=== PATIENT | male | born 1975 | race Caucasian/White ===

== ENCOUNTER 2016-08-28 10:38 | Inpatient (IN) ==
[2016-08-28] MEDS ORDERED: 0.9 % Sodium Chloride 1,000 ML IVC ONE (10:41)
[2016-08-28] MEDS ORDERED: Ondansetron 4 MG/2 ML VIAL IVP ONE (10:42)
[2016-08-28] MEDS ORDERED: *HR* FentaNYL (PF) 100 MCG/2 ML VIAL IVP ONE (10:42)
[2016-08-28 11:07] LABS: Hemoglobin 9.5 g/dL (12.9-16.9)
[2016-08-28 11:08] LABS: Basophils % 0.5 %; Eosinophils # 0.6 K/mcL (0.0-0.6); Eosinophils % 9.5 %; Hematocrit 28.6 % (37.5-50.1); Immature Granulocytes % 1.6 % (0-4); Immature Platelets 5.4 % (1.1-6.1); Lymphocytes # 0.8 K/mcL (0.6-4.6); Lymphocytes % 13.3 %; Mean Corpuscular HGB Conc 33.2 g/dL (31.6-35.5); Mean Corpuscular Hemoglobin 31.6 pg (28.0-33.3); Mean Platelet Volume 11.1 fL (9.4-12.4); Monocytes # 0.6 K/mcL (0.0-1.3); Monocytes % 10.3 %; Red Blood Count 3.01 M/mcL (4.19-5.50); Red Cell Distribution Width 18.9 % (11.5-14.5); Segmented Neutrophils % 64.8 %
[2016-08-28 11:12] LABS: INR 2.2; Platelet Count 69 K/mcL (140-400)
[2016-08-28 11:14] LABS: Activated Partial Thrombo Time 45.1 Seconds (26.0-36.0)
[2016-08-28 11:20] LABS: Alanine Aminotransferase 22 Units/L (0-55); Albumin/Globulin Ratio 0.9 (1.1-2.2); Alkaline Phosphatase 81 Units/L (38-126); Aspartate Amino Transferase 39 Units/L (5-34); BUN/Creatinine Ratio 12 (6-26); Bilirubin,Total 3.2 mg/dL (0.2-1.2); Blood Urea Nitrogen 16 mg/dL (8-26); Calcium 8.9 mg/dL (8.6-10.8); Carbon Dioxide 25 mEq/L (19-29); Chloride 98 mEq/L (98-109); Globulin 3.5 g/dL (2.4-3.5); Glucose 132 mg/dL (70-99); Osmolality,Calculated 279 (280-300); Potassium 3.1 mEq/L (3.5-4.5); Sodium 133 mEq/L (136-145); Total Protein 6.5 g/dL (6.0-8.3); eGFR For African Americans > 60 (> 60); eGFR For Non-African Americans 56 (> 60)
--- NOTE | 2016-08-28 11:23 | Emergency Department Note ---
Disposition Clinical Impression: Abdominal wall hematoma Qualifiers: Encounter type: initial encounter Qualified Code(s): S30.1XXA - Contusion of abdominal wall, initial encounter Anemia Qualifiers: Anemia type: iron deficiency Iron deficiency anemia type: unspecified iron deficiency Qualified Code(s): D50.9 - Iron deficiency anemia, unspecified Disposition: Admitted As Inpatient [facility] Care Provider[facility] - Forms: Work/School Release, ED Satisfaction Letter Time of Disposition: 12:00 Abdominal Pain HPI - General Chief Complaint: ED Abdominal Pain Stated Complaint: abdominal pain Time Seen by Provider: 08/28/16 10:41 Source: patient, EMS Mode of arrival: EMS Limitations: no limitations Nursing Notes Reviewed: Yes Vital Signs Reviewed: Yes - History of Present Illness HPI Narrative: Patient is a 41-year-old male end-stage liver disease is here for abdominal pain, he had a [facility]acentesis performed at [facility] he was having pain and a hematoma developing so they performed a CAT scan. They showed a large hematoma in the inferior abdominal wall with some blood extravasation actively. The patient is having severe lower abdominal pain. His vital signs have remained stable at the [facility] he was transferred here for higher level of care Pt Subjective Complaint: abdominal pain Consistency: constant Location: LUQ, LLQ Pain Scale: 10 Quality: aching Improves with: nothing Worsens with: nothing Associated symptoms: Denies: vomiting, diarrhea, fever, constipation Treatments prior to arrival: none - Related Data Home Medications Medication Instructions Recorded Confirmed Folic Acid 1 mg PO DAILY 06/08/15 07/15/16 Multivitamin/Iron/Folic Acid 1 tab PO DAILY 06/08/15 07/15/16 [Centrum Complete Multivit Tab] Propranolol HCl 60 mg PO DAILY 06/08/15 07/15/16 Spironolactone [Aldactone] 100 mg PO BID 06/08/15 07/15/16 Bumetanide [Bumex] 1 mg PO BID 07/15/16 07/15/16 Cyclobenzaprine HCl 5 mg PO TID 07/15/16 07/15/16 Mirtazapine [Remeron] 15 mg PO HS 07/15/16 07/15/16 Omeprazole [PriLOSEC] 40 mg PO DAILY 07/15/16 07/15/16 Ondansetron HCl [Zofran] 4 mg PO BID 07/15/16 07/15/16 Previous Rx's Medication Instructions Recorded Lactulose 20 gm PO Q6HR 30 Days 07/18/16 Potassium Chloride 20 meq PO DAILY 10 Days 07/18/16 Rifaximin [Xifaxan] 550 mg PO BID #60 tablet 07/18/16 Allergies Allergy/AdvReac Type Severity Reaction Status Date / Time Penicillins Allergy Mild Rash Verified 08/28/16 11:06 All systems ED: reviewed and negative except as stated. Constitutional: Denies: fever, chills, weakness Abdominal Pain PMH - Past Medical History Medical history: Reports: cirrhosis, GERD, GI bleed, hepatitis, hyperlipidemia, hypertension, liver disease, other Male Surgical History: Reports: other Psychiatric history: Reports: depression - Social History Smoking status: Former smoker Alcohol use: Reports: none Drug use: Reports: none Physical Exam - General Limitations: no limitations General appearance: alert, other (obvious pain crying on exam) - ENT ENT exam: normal exam, normal oropharynx, mucous membranes moist - Neck Neck exam: Present: normal inspection, full ROM, trachea midline - Chest Chest inspection: Present: normal inspection, symmetric chest wall rise - Respiratory Respiratory exam: Present: normal lung sounds bilaterally - Cardiovascular Cardiovascular exam: Present: regular rate, normal rhythm, normal heart sounds - Abdominal Exam Abdominal exam: Present: distention, guarding, normal bowel sounds Abdominal tenderness: Present: LUQ, LLQ, severe - Back Exam Back exam: Present: normal inspection, full ROM. Absent: tenderness - Neurological Exam Neurological exam: Present: alert, oriented X3 - Psychiatric Psychiatric exam: Present: normal affect, normal mood Course Vital Signs Temperature 98.0 F 08/28/16 10:39 Pulse Rate 86 08/28/16 10:39 Respiratory Rate 22 08/28/16 10:39 Blood Pressure 105/63 08/28/16 10:39 O2 Sat by Pulse Oximetry 99 08/28/16 10:39 Temperature 98.0 F 08/28/16 10:39 Pulse Rate 82 08/28/16 11:35 Respiratory Rate 16 08/28/16 11:35 Blood Pressure 102/68 08/28/16 11:35 O2 Sat by Pulse Oximetry 94 L 08/28/16 11:35 Oxygen Delivery Oxygen Delivery Room Air Abdominal Pain - MDM Narrative Medical decision making narrative: With interventional radiology Dr. Salazar and also we will follow with serial H&H's, Vit K and FFP 3 Units per hospitalist recommendation. - Differential Diagnosis Differential Diagnosis: Likely: abdominal pain mimics ectopic , acute appendicitis, calculus of kidney, constipation, diverticulitis, diverticulosis, endometriosis, ischemic bowel, small bowel obstruction - Medical Records Medical records reviewed: Yes I reviewed the patient's medical records. - Lab Data Lab results reviewed: Yes I reviewed the patient's lab results. Result diagrams: 08/28/16 10:50 08/28/16 10:50 Lab Results 08/28/16 08/28/16 08/28/16 Range/Units 10:50 10:50 10:50 WBC 6.1 (4.3-11.1) K/mcL RBC 3.01 L (4.19-5.50) M/mcL Hgb 9.5 L (12.9-16.9) g/dL Hct 28.6 L (37.5-50.1) % MCV 95.0 (83.0-100.0) fL MCH 31.6 (28.0-33.3) pg MCHC 33.2 (31.6-35.5) g/dL RDW 18.9 H (11.5-14.5) % Plt Count 69 L (140-400) K/mcL MPV 11.1 (9.4-12.4) fL Immature Gran % 1.6 (0-4) % Seg Neutrophils % 64.8 % Lymphocytes % 13.3 % Monocytes % 10.3 % Eosinophils % 9.5 % Basophils % 0.5 % Neutrophils # 4.0 (1.6-8.9) K/mcL Lymphocytes # 0.8 (0.6-4.6) K/mcL Monocytes # 0.6 (0.0-1.3) K/mcL Eosinophils # 0.6 (0.0-0.6) K/mcL Basophils # 0.0 (0.0-0.2) K/mcL Immature Plt Fraction 5.4 (1.1-6.1) % PT 24.0 H (9.4-12.1) Seconds INR 2.2 APTT 45.1 H (26.0-36.0) Seconds Sodium (136-145) mEq/L Potassium (3.5-4.5) mEq/L Chloride (98-109) mEq/L Carbon Dioxide (19-29) mEq/L BUN (8-26) mg/dL Creatinine (0.72-1.25) mg/dL Est GFR ( Amer) (> 60) Est GFR (Non-Af Amer) (> 60) BUN/Creatinine Ratio (6-26) Glucose (70-99) mg/dL Calculated Osmolality (280-300) Calcium (8.6-10.8) mg/dL Magnesium 1.5 L (1.6-2.6) mg/dL Total Bilirubin (0.2-1.2) mg/dL AST (5-34) Units/L ALT (0-55) Units/L Alkaline Phosphatase (38-126) Units/L Serum Total Protein (6.0-8.3) g/dL Albumin (3.5-5.0) g/dL Globulin (2.4-3.5) g/dL Albumin/Globulin Ratio (1.1-2.2) Blood Type 08/28/16 08/28/16 Range/Units 10:50 10:50 WBC (4.3-11.1) K/mcL RBC (4.19-5.50) M/mcL Hgb (12.9-16.9) g/dL Hct (37.5-50.1) % MCV (83.0-100.0) fL MCH (28.0-33.3) pg MCHC (31.6-35.5) g/dL RDW (11.5-14.5) % Plt Count (140-400) K/mcL MPV (9.4-12.4) fL Immature Gran % (0-4) % Seg Neutrophils % % Lymphocytes % % Monocytes % % Eosinophils % % Basophils % % Neutrophils # (1.6-8.9) K/mcL Lymphocytes # (0.6-4.6) K/mcL Monocytes # (0.0-1.3) K/mcL Eosinophils # (0.0-0.6) K/mcL Basophils # (0.0-0.2) K/mcL Immature Plt Fraction (1.1-6.1) % PT (9.4-12.1) Seconds INR APTT (26.0-36.0) Seconds Sodium 133 L (136-145) mEq/L Potassium 3.1 L (3.5-4.5) mEq/L Chloride 98 (98-109) mEq/L Carbon Dioxide 25 (19-29) mEq/L BUN 16 (8-26) mg/dL Creatinine 1.39 H (0.72-1.25) mg/dL Est GFR ( Amer) > 60 (> 60) Est GFR (Non-Af Amer) 56 L (> 60) BUN/Creatinine Ratio 12 (6-26) Glucose 132 H (70-99) mg/dL Calculated Osmolality 279 L (280-300) Calcium 8.9 (8.6-10.8) mg/dL Magnesium (1.6-2.6) mg/dL Total Bilirubin 3.2 H (0.2-1.2) mg/dL AST 39 H (5-34) Units/L ALT 22 (0-55) Units/L Alkaline Phosphatase 81 (38-126) Units/L Serum Total Protein 6.5 (6.0-8.3) g/dL Albumin 3.0 L (3.5-5.0) g/dL Globulin 3.5 (2.4-3.5) g/dL Albumin/Globulin Ratio 0.9 L (1.1-2.2) Blood Type AB POSITIVE - Radiology Data Radiology results reviewed: Yes I reviewed the patient's radiology results. Critical Care Time Critical Care Time: Yes Total Critical Care Time: 40 Attestation: Critical care performed: Time is exclusive of separately billable procedures. Time includes: direct patient care, patient reassessment, coordination of patient care, interpretation of data (laboratory data, radiology data, and respiratory data), review of patient's medical records, medical consultation and documentation of patient care. Procedures included in critical care time: Procedures excluded from critical care time:
[2016-08-28] MEDS ORDERED: *HR* Phytonadione 5 MG TABLET PO ONE (11:48)
[2016-08-28] MEDS ORDERED: Naloxone 0.4 MG/ML INJ IVP PRN (13:36)
[2016-08-28] MEDS ORDERED: Ondansetron 4 MG/2 ML VIAL IVP PRN (13:36)
[2016-08-28] MEDS ORDERED: 0.9 % Sodium Chloride 250 ML ONE (13:41)
[2016-08-28] MEDS ORDERED: *HR* OxyCODONE Immed Rel 5 MG TABLET PO PRN (14:07)
[2016-08-28] MEDS: *HR* Morphine 2 MG/ML SYRINGE IVP PRN ×2 (14:43→21:40)
--- NOTE | 2016-08-28 15:01 | Internal Med History&Physical ---
Date of Encounter: 08/28/16 Time of Encounter: 13:00 Assessment and Plan (1) Abdominal wall hematoma Current visit: Yes Status: Acute 1 patient underwent a paracentesis today at [facility]. He developed a large hematoma in the left lower abdominal wall with evidence of active arterial extravasation. INR was 2.2 He was given 10 of vitamin K. H&H every 6- transfuse as needed 2 give 3 FFP recheck INR goal is INR less than 1.5-will transfuse FFP if greater 3 monitor for signs and symptoms of hemorrhage-continuous cardiac monitoring Qualifiers: Encounter type: initial encounter Qualified Code(s): S30.1XXA - Contusion of abdominal wall, initial encounter (2) Hypokalemia Current visit: No Status: Acute 1 potassium 3.1 we will give 20 mEq of potassium orally once and recheck in a.m. (3) Anemia of chronic disease Current visit: No Status: Chronic 1 present when hemoglobin 9.5 baseline around 9 we will continue to monitor H&H and transfuse as needed 2 continue with iron and folic acid supplements (4) DVT prophylaxis Current visit: No Status: Acute 1 SCDs due to presence of hematoma (5) Ascites due to alcoholic cirrhosis Current visit: No Status: Chronic 1 consulted IR for possible paracentesis tomorrow if INR , H&H stable 2 we will continue with spironolactone 3 we will continue with lactulose (6) Thrombocytopenia Current visit: No Status: Chronic 1 presently platelets are 69 will monitor for signs and symptoms of bleeding 2 we will recheck platelets in a.m. we will transfuse if less than 20 Internal Medicine - H&P: HPI Chief complaint: Abd rai Admitted From: Emergency Dept Plans for Post Hospital Care: Home History of present illness: Mr. Claros is a 41 year old male with a past medical hx of anemia alcohol cirrhosis GERD GI bleed hepatitis hyperlipidemia HTN . According to the patient he went to the [facility] this Am for a paracentesis which he undergoes monthly. During the procedure he developed sharp ABD pain. The procedure was stopped and he was sent to CT scan which revealed a large hematoma in the Left lower abdominal wall, which was consistent with active arterial extravastion. He was sent to the [facility] ED for further evaluation. According to ED records the patient presented with severe lower abd pain. He was given pain medication and was hemodynamically stable . Lab work revealed Hgb 9.5 platlets of 69 INR 2.2. He denies any hemataemesis, melena, hematochezia. He does have nausea early satiety loose stools(on lactulose). He denies any fevers chills chest pain or shortness of breath. According to ED notes the case was reviewed with IR Dr Salazar and Dr Leong. Vit K and FFP were ordered and he was admitted for further workup and evaluation . Upon assesment the patient's abd is distended with abd tenderness to LUQ and LLL with guarding. At present time he states that his pain is controlled, presently he is hemodynamically stable. I reviewed this case with who agrees with plan Past Med Surg Social Fam HX - Past Medical History Medical history: cirrhosis, GERD, GI bleed, hepatitis, hyperlipidemia, hypertension, liver disease, other Psychiatric history: depression - Past Surgical History Surgical History: orthopedic, other, other (EGD, Esophageal banding, Paracentesis) - Social History Smoking Status: Former smoker Smokeless Tobacco Status: Yes Alcohol use: none Drug use: none - Family History Father Adopted: No Living Status: Hx Family Cardiac Disorders: No Hx Family Respiratory Disorders: No Hx Family Cancer: Yes Hx Family GI Disorders: No Hx Family Endocrine Disorder: No Hx Family Neuromuscular Disorders: No Hx Family Neurologic Disorders: No Hx Family HEENT Disorders: No Hx Family Autoimmune Disorders: No Internal Medicine - H&P: Meds Folic Acid 1 mg PO DAILY 06/08/15 [History] Multivitamin/Iron/Folic Acid [Centrum Complete Multivit Tab] 1 tab PO DAILY [History] Propranolol HCl 60 mg PO DAILY 06/08/15 [History] Spironolactone [Aldactone] 100 mg PO BID 06/08/15 [History] Bumetanide [Bumex] 2 mg PO BID 07/15/16 [History] Cyclobenzaprine HCl 5 mg PO TID 07/15/16 [History] Mirtazapine [Remeron] 15 mg PO HS 07/15/16 [History] Omeprazole [PriLOSEC] 40 mg PO DAILY 07/15/16 [History] Ondansetron HCl [Zofran] 4 mg PO BID PRN 07/15/16 [History] Ciprofloxacin HCl [Cipro] 500 mg PO DAILY 08/28/16 [History] Lactulose 10 gm PO QID 08/28/16 [History] Pantoprazole Sodium [Protonix] 40 mg PO DAILY 08/28/16 [History] Potassium Chloride 10 meq PO DAILY 08/28/16 [History] Allergies Penicillins Allergy (Mild, Verified 08/28/16 11:06) Rash All Systems PM: A 10-system review of systems was performed and is negative for pertinent findings except as documented above in the HPI. - Constitutional Constitutional: chills, fatigue - Cardiovascular Cardiovascular ROS IM: dyspnea on exertion, no chest pain, no diaphoresis, no dyspnea, no lightheadedness, no palpitations, no syncope - Respiratory Respiratory: no cough, no dyspnea, no wheezing, no excessive phlegm production - Gastrointestinal Gastrointestinal: abdominal pain, early satiety, loose stools, nausea - Musculoskeletal Musculoskeletal ROS IM: no numbness, no tingling - Integumentary Integumentary IM: no rash, no unusual bruising - Neurological Neurological ROS: no confusion, no convulsions, no focal weakness, no numbness, no tingling, no tremor(s) - Constitutional Vitals: Temp Pulse Resp BP Pulse Ox 97.8 F 86 16 98/69 95 08/28/16 13:50 08/28/16 13:50 08/28/16 13:50 08/28/16 13:50 08/28/16 13:50 General appearance: Present: A&O X 3 Exam: He appears chronically ill - Head Head exam: Present: atraumatic, normocephalic - Eye Eye exam: Present: PERRL, conjuntiva pink, sclera anicteric Pupils: Present: PERRL - Neck Neck exam general surgery: Present: supple, trachea midline. Absent: lymphadenopathy - Respiratory Respiratory exam: Present: CTAB. Absent: accessory muscle use, rales, rhonchi, wheezes - Cardiovascular Cardiovascular exam: Present: RRR, +S1, +S2. Absent: diastolic murmur, gallop, rubs, systolic murmur - GI/Abdominal GI/Abdominal exam: Present: distended, firm, guarding, normal bowel sounds, tenderness, no peritoneal signs Additional comments: Abdominal tenderness to left upper left lower quadrants - Extremities Exam Extremities exam: Present: warm, radial pulses palpable and symetrical. Absent : calf tenderness, cyanotic, pedal edema - Neurological Exam Neurological exam: Present: CN II-XII intact, oriented X3, no focal deficits. Absent: pronater drift, facial droop, speech deficit - Skin Skin exam: Present: dry, intact Additional comments: Slightly jaundice, bruising to left lower quadrant of abdomen Internal Med - H&P Results - Labs CBC & Chem 7: 08/28/16 15:03 08/28/16 10:50 - Diagnostic Studies CT scan - abdomen Additional comments: Per radiology read large hematoma in the left lower abdominal wall with evidence of active arterial extravasation Findings of cirrhosis and portal hypertension. There is a large amount of ascites gastroesophageal varices and splenomegaly
[2016-08-28 15:28] LABS: Hematocrit 25.6 % (37.5-50.1); Hemoglobin 8.3 g/dL (12.9-16.9)
[2016-08-28 15:51] LABS: INR 2.1; Prothrombin Time 22.7 Seconds (9.4-12.1)
[2016-08-28 15:54] LABS: Activated Partial Thrombo Time 43.5 Seconds (26.0-36.0)
[2016-08-28] MEDS: Lactulose Oral Soln 20 GM/30 ML UDC PO SCH ×2 (16:48→21:44)
[2016-08-28] MEDS: Bumetanide 1 MG TABLET PO SCH (21:44)
[2016-08-28] MEDS: Mirtazapine 15 MG TABLET PO SCH (21:46)
[2016-08-28] MEDS: Spironolactone 25 MG TABLET PO SCH (21:46)
[2016-08-29] MEDS: *HR* Morphine 2 MG/ML SYRINGE IVP PRN ×2 (03:59→22:47)
[2016-08-29 04:43] LABS: INR 1.9; Prothrombin Time 20.4 Seconds (9.4-12.1)
[2016-08-29 04:44] LABS: Basophils % 0.3 %; Hemoglobin 7.3 g/dL (12.9-16.9); Immature Granulocytes % 1.3 % (0-4); Mean Corpuscular Hemoglobin 31.6 pg (28.0-33.3); Red Blood Count 2.31 M/mcL (4.19-5.50)
[2016-08-29 04:46] LABS: Eosinophils # 0.5 K/mcL (0.0-0.6); Eosinophils % 7.9 %; Hematocrit 22.2 % (37.5-50.1); Lymphocytes # 0.8 K/mcL (0.6-4.6); Mean Corpuscular HGB Conc 32.9 g/dL (31.6-35.5); Mean Corpuscular Volume 96.1 fL (83.0-100.0); Mean Platelet Volume 11.1 fL (9.4-12.4); Monocytes # 0.9 K/mcL (0.0-1.3); Monocytes % 14.2 %; Red Cell Distribution Width 18.9 % (11.5-14.5); Segmented Neutrophils % 63.3 %
[2016-08-29 04:49] LABS: Neutrophils # 3.9 K/mcL (1.6-8.9); Platelet Count 62 K/mcL (140-400)
[2016-08-29 04:51] LABS: BUN/Creatinine Ratio 11 (6-26); Blood Urea Nitrogen 14 mg/dL (8-26); Carbon Dioxide 26 mEq/L (19-29); Chloride 97 mEq/L (98-109); Glucose 129 mg/dL (70-99); Osmolality,Calculated 276 (280-300); Potassium 3.5 mEq/L (3.5-4.5); Sodium 132 mEq/L (136-145); eGFR For African Americans > 60 (> 60); eGFR For Non-African Americans > 60 (> 60)
[2016-08-29] MEDS ORDERED: *HR* Phytonadione 5 MG TABLET PO ONE (08:35)
[2016-08-29] MEDS ORDERED: NON-FORMULARY MEDICATION 1 EACH EACH (Pantoprazole Sodium [Protonix] 40 MG) PO SCH (09:00)
[2016-08-29] MEDS: Lactulose Oral Soln 20 GM/30 ML UDC PO SCH ×4 (10:00→22:46)
[2016-08-29] MEDS: Multivit/Ca/Min/Fe/FA 1 TAB TABLET PO SCH (10:02)
[2016-08-29] MEDS: Spironolactone 25 MG TABLET PO SCH ×2 (10:02→21:23)
[2016-08-29] MEDS: Folic Acid 1 MG TABLET PO SCH (10:02)
[2016-08-29] MEDS: Bumetanide 1 MG TABLET PO SCH ×2 (10:03→21:24)
[2016-08-29 13:29] LABS: INR 1.8; Prothrombin Time 19.2 Seconds (9.4-12.1)
[2016-08-29] MEDS ORDERED: Lactulose Oral Soln 20 GM/30 ML UDC PO STA (15:04)
--- NOTE | 2016-08-29 16:53 | Internal Med Progress Note ---
Date of Encounter: 08/29/16 Time of Encounter: 13:00 - Assessment and plan (1) Abdominal wall hematoma Current Visit: Yes Status: Acute Assessment and plan: Mild, stable Hb stable now, INR improving For paracentensis a.m IR has been consulted again NPO from [place] Qualifiers: Encounter type: initial encounter Qualified Code(s): S30.1XXA - Contusion of abdominal wall, initial encounter (2) Hypokalemia Current Visit: Yes Status: Acute Assessment and plan: IMproved Resume home meds (3) Anemia of chronic disease Current Visit: Yes Status: Chronic Assessment and plan: Chronic, stable around 7, not baseline, but no current indication for transfusion (4) Ascites due to alcoholic cirrhosis Current Visit: Yes Status: Chronic Assessment and plan: For paracetensis a.m (5) COPD (chronic obstructive pulmonary disease) Current Visit: Yes Status: Chronic Assessment and plan: No current evidence of exacerbation, monitor closely Qualifiers: COPD type: chronic bronchitis Chronic bronchitis type: unspecified Qualified Code(s): J42 - Unspecified chronic bronchitis (6) Cirrhosis of liver Current Visit: Yes Status: Chronic Assessment and plan: Decompensated Mild transaminitis, s/p esophageal varices bleed, portal HTN and ascites Continue home diuretics, chemistry is acceptable Lactulose qhr to achieve 3 BM daily Enema prn avoid sedatives and monitor mental status closely Qualifiers: Hepatic cirrhosis type: alcoholic cirrhosis Ascites presence: with ascites Qualified Code(s): K70.31 - Alcoholic cirrhosis of liver with ascites (7) Pancytopenia Current Visit: Yes Status: Chronic Assessment and plan: Chronic, stable - Subjective Interval history: Mr. Claros is a 41 year old male with a past medical hx of chronic anemia ( baseline HB per patient is ~9) alcohol liver cirrhosis, decompensated, GERD, GI bleed ,hepatitis ,hyperlipidemia, HTN He probably also has hx of SBP and is on ciprofloxacin po for prophylaxis Patient was hospitalized yesterday and placed on observation for management of coagulopathy from liver disease with an INR of 2.2, and abdominal wall hematoma following an attempt at paracetensis at the [facility] he was seen at the bedside this morning, upset about being hospitalized and asking to be discharged At time of review, IR was at bedside and recommendation was to attempt paracetensis when INR is equal to or less than 1.5 Also, there was concern that doing the procedure may result in bleeding as the ascites is acting as tamponade to the previous bleed Of note, patient's baseline Hb is 9 and has been trending down since admission, at time of review was 7.3 He is s/p 3 units of FFP and 10mg po Vitamin K I encouraged patient to allow a recheck of his Hb to ensure stability, Hb at noon time repeat ws 7.7, INR now 1.8 from 1.9 This afternoon, patient is drowsy, participating in conversation but occasionally falls asleep and acts confused. His spouse at the bedside believs he is tires He has not had a BM today. Lactulose po stat was given - Constitutional Vitals: Temp Pulse Resp BP Pulse Ox 98.5 F 92 16 96/62 96 08/29/16 16:40 08/29/16 16:40 08/29/16 16:40 08/29/16 16:40 08/29/16 16:40 General appearance: Present: cachectic, A&O X 3, pleasant, no acute distress - Head Head exam: Present: atraumatic - Eye Eye exam: Present: PERRL, scleral icterus - ENT ENT exam: Present: mucous membranes moist - Neck Neck exam general surgery: Present: normal inspection - Respiratory Respiratory exam: Present: CTAB - Cardiovascular Cardiovascular exam: Present: RRR, +S1, +S2, systolic murmur - GI/Abdominal GI/Abdominal exam: Present: distended, firm, normal bowel sounds, soft, no peritoneal signs. Absent: guarding, hernia, tenderness - Extremities Exam Extremities exam: Absent: pedal edema Additional comments: Multiple excoriation johns - Neurological Exam Neurological exam: Present: altered, oriented X3, no focal deficits. Absent: pronater drift, facial droop, speech deficit - Skin Skin exam: Present: dry, excoriation Internal Medicine: Result - Labs CBC & Chem 7: 08/29/16 12:46 08/29/16 04:16 Labs: Short CBC 08/29/16 08/29/16 Range/Units 04:16 12:46 WBC 6.1 (4.3-11.1) K/mcL Hgb 7.3 L 7.7 L (12.9-16.9) g/dL Hct 22.2 L (37.5-50.1) % Plt Count 62 L (140-400) K/mcL Neutrophils # 3.9 (1.6-8.9) K/mcL BMP 08/29/16 04:16 Sodium 132 L Potassium 3.5 Chloride 97 L Carbon Dioxide 26 BUN 14 Creatinine 1.24 Glucose 129 H Calcium 9.0 - ABG Interpretation ABG results: PT/INR, D-dimer PT 19.2 Seconds (9.4-12.1) H 08/29/16 12:46 - VTE Reasons for not Prescribing Prophylaxis: Medical contraindication Documentation of Mechanical Device: Intermittent pneumatic compression device Consult Discharge Plan - Plan Referrals: [facility] [Outside] - 09/03/16 9:30 am
[2016-08-29] MEDS: Mirtazapine 15 MG TABLET PO SCH (21:23)
[2016-08-30 04:37] LABS: Eosinophils % 6.6 %; Hemoglobin 6.9 g/dL (12.9-16.9)
[2016-08-30 04:39] LABS: Basophils % 0.5 %; Eosinophils # 0.4 K/mcL (0.0-0.6); Hematocrit 20.7 % (37.5-50.1); Immature Platelets 5.2 % (1.1-6.1); Lymphocytes % 14.3 %; Mean Corpuscular HGB Conc 33.3 g/dL (31.6-35.5); Mean Corpuscular Hemoglobin 32.2 pg (28.0-33.3); Mean Corpuscular Volume 96.7 fL (83.0-100.0); Mean Platelet Volume 11.2 fL (9.4-12.4); Monocytes % 16.3 %; Neutrophils # 3.6 K/mcL (1.6-8.9); Red Blood Count 2.14 M/mcL (4.19-5.50); Red Cell Distribution Width 19.3 % (11.5-14.5); Segmented Neutrophils % 61.3 %
[2016-08-30 04:41] LABS: Lymphocytes # 0.8 K/mcL (0.6-4.6); Platelet Count 56 K/mcL (140-400)
[2016-08-30 04:42] LABS: INR 1.9; Prothrombin Time 21.3 Seconds (9.4-12.1)
[2016-08-30 04:56] LABS: Platelet Estimate Decreased (Normal)
[2016-08-30 04:57] LABS: Anisocytosis 1+ (Not Present); Polychromasia 1+ (Not Present)
--- NOTE | 2016-08-30 06:06 | Event Note ---
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 Upon arrival to patient's room, he was very upset that his paracentesis "keeps being delayed" and was threatening to leave AMA while using profanity. He was very upset because he would like his paracentesis done as soon as possible so the he could go home, and stated that he was "sick" of being in the hospital. I explained to the patient and talked with him extensively that he is at high risk for complications with this procedure if his Hemoglobin and INR do not meet certain parameters. Furthermore, I explained to him that he has an abdominal wall hematoma that puts him at high risk as well. I stayed in the room and answered questions that the patient and his had regarding why the paracentesis is being delayed. Patient was very upset because he was disoriented and thought it was 10am Friday morning (it was actually 10pm evening), and when he was oriented to the proper time, he seemed to calm down.
--- NOTE | 2016-08-30 09:59 | Electrocardiograph Report ---
[place] [id number] Test Date: 2016-08-28 Pat Name: Chase Claros Department: 115 Room: 3A42 Gender: M Dialysis Nurse: : 1975 Requested By: Anjali Suggs Order Number: [id number] Reading MD: Adia Davis Measurements Intervals Keller Rate: 91 P: -14 VA: 141 QRS: -8 QRSD: 92 T: 11 QT: 385 QTc: 434 Interpretive Statements SINUS RHYTHM NONSPECIFIC T-WAVE ABNORMALITY Electronically Signed On 08-30-2016 9:57:12 EST by Aida Davis
[2016-08-30] MEDS ORDERED: 0.9 % Sodium Chloride 250 ML ONE (10:41)
[2016-08-30] MEDS: Spironolactone 25 MG TABLET PO SCH ×2 (10:55→22:32)
[2016-08-30] MEDS: Lactulose Oral Soln 20 GM/30 ML UDC PO SCH ×4 (10:55→22:36)
[2016-08-30] MEDS: Folic Acid 1 MG TABLET PO SCH (10:56)
[2016-08-30] MEDS: Bumetanide 1 MG TABLET PO SCH ×2 (10:56→22:33)
[2016-08-30] MEDS: Multivit/Ca/Min/Fe/FA 1 TAB TABLET PO SCH (10:57)
--- NOTE | 2016-08-30 12:06 | IR Procedure Note ---
Date of procedure: 08/30/16 Consent Obtained: Verbal consent, Written consent Timeout: Correct patient and procedure verified, Correct site verified, Time out performed, Skin prep completed Local anesthetic: Lidocaine 1% Indications: Ascites Procedure Performed: Paracentesis Site/Technique: Paracentesis performed Results/Findings: Large ascites Estimated blood loss (cc): 1 Complications: None; Tolerated procedure well Post Procedure Treatment Plan: Continue inpatient care
[2016-08-30] MEDS ORDERED: Albumin 25% 25gram/100mL 25 GM/100 ML IV.SOLN IVPB ONE (14:39)
--- NOTE | 2016-08-30 16:46 | Internal Med Progress Note ---
Date of Encounter: 08/30/16 Time of Encounter: 09:20 - Assessment and plan (1) Abdominal wall hematoma Current Visit: Yes Status: Acute Assessment and plan: Mild, stable Hb today 6.9 Will transfuse with 1 unit RBC Repeat Hb 2 hrs after transfusion Qualifiers: Encounter type: initial encounter Qualified Code(s): S30.1XXA - Contusion of abdominal wall, initial encounter (2) Hypokalemia Current Visit: Yes Status: Acute Assessment and plan: IMproved Resume home meds (3) Anemia of chronic disease Current Visit: Yes Status: Chronic Assessment and plan: Chronic, with acute drop secondary to abdominal wall bleed Will give 1 unit RBC today (4) Ascites due to alcoholic cirrhosis Current Visit: Yes Status: Chronic Assessment and plan: s/p paracentensis with 8.1L of fluid removed Continue SBP prophylaxis Give 8g/L of albumin for extra 3L of fluid removed ~25g of albumin, ordered Monitor BP (5) COPD (chronic obstructive pulmonary disease) Current Visit: Yes Status: Chronic Assessment and plan: No current evidence of exacerbation, monitor closely Qualifiers: COPD type: chronic bronchitis Chronic bronchitis type: unspecified Qualified Code(s): J42 - Unspecified chronic bronchitis (6) Cirrhosis of liver Current Visit: Yes Status: Chronic Assessment and plan: Decompensated Mild transaminitis, s/p esophageal varices bleed, portal HTN and ascites Continue home diuretics, chemistry is acceptable Lactulose qhr to achieve 3 BM daily Enema prn avoid sedatives and monitor mental status closely Qualifiers: Hepatic cirrhosis type: alcoholic cirrhosis Ascites presence: with ascites Qualified Code(s): K70.31 - Alcoholic cirrhosis of liver with ascites (7) Pancytopenia Current Visit: Yes Status: Chronic Assessment and plan: Chronic, stable - Subjective Interval history: Mr. Claros is a 41 year old male with a past medical hx of chronic anemia ( baseline HB per patient is ~9) alcohol liver cirrhosis, decompensated, GERD, GI bleed ,hepatitis ,hyperlipidemia, HTN He probably also has hx of SBP and is on ciprofloxacin po for prophylaxis Patient was hospitalized 08/28 and placed on observation for management of coagulopathy from liver disease with an INR of 2.2, and abdominal wall hematoma following an attempt at paracetensis at the [place] INR has been stable ~1.8 to 1.9, Hb today dropped to 6.9 from 7.7 Patient is seen at bedside with spouse No new complains, is having adequate BM He is scheduled for paracentensis today by IR - Constitutional Vitals: Temp Pulse Resp BP Pulse Ox 98.5 F 84 12 88/53 98 08/30/16 14:57 08/30/16 14:57 08/30/16 14:57 08/30/16 14:57 08/30/16 14:42 General appearance: Present: cachectic, A&O X 3, pleasant, no acute distress - Head Head exam: Present: atraumatic - Eye Eye exam: Present: PERRL, scleral icterus, conjuntiva pink - ENT ENT exam: Present: mucous membranes moist - Neck Neck exam general surgery: Present: normal inspection - Respiratory Respiratory exam: Present: CTAB - Cardiovascular Cardiovascular exam: Present: +S1, +S2, systolic murmur - GI/Abdominal GI/Abdominal exam: Present: distended, normal bowel sounds, soft, no peritoneal signs. Absent: tenderness - Extremities Exam Extremities exam: Absent: pedal edema - Neurological Exam Neurological exam: Present: alert, oriented X3, no focal deficits - Skin Skin exam: Present: dry, excoriation Internal Medicine: Result - Labs CBC & Chem 7: 08/30/16 04:23 08/29/16 04:16 Labs: Short CBC 08/30/16 Range/Units 04:23 WBC 5.9 (4.3-11.1) K/mcL Hgb 6.9 L (12.9-16.9) g/dL Hct 20.7 L (37.5-50.1) % Plt Count 56 L (140-400) K/mcL Neutrophils # 3.6 (1.6-8.9) K/mcL - ABG Interpretation ABG results: PT/INR, D-dimer PT 21.3 Seconds (9.4-12.1) H 08/30/16 04:23 - Impressions Impressions Paracentesis Ultrasound 08/30/16 00:00 IMPRESSION: Successful ultrasound guided paracentesis. D/ / Giacomo Marcial MD / Giacomo Marcial MD Interpreting Provider: Giacomo Marcial MD - VTE Reasons for not Prescribing Prophylaxis: Medical contraindication Documentation of Mechanical Device: Intermittent pneumatic compression device Consult Discharge Plan - Plan Referrals: [facility] [Outside] - 09/03/16 9:30 am
[2016-08-30 21:55] LABS: Hematocrit 22.3 % (37.5-50.1); Hemoglobin 7.5 g/dL (12.9-16.9)
[2016-08-30] MEDS: Mirtazapine 15 MG TABLET PO SCH (22:38)
[2016-08-31] MEDS: Spironolactone 25 MG TABLET PO SCH (08:48)
[2016-08-31] MEDS: Bumetanide 1 MG TABLET PO SCH (08:49)
[2016-08-31] MEDS: Folic Acid 1 MG TABLET PO SCH (08:49)
[2016-08-31] MEDS: Multivit/Ca/Min/Fe/FA 1 TAB TABLET PO SCH (08:49)
[2016-08-31] MEDS: Lactulose Oral Soln 20 GM/30 ML UDC PO SCH ×2 (08:50→08:59)
[2016-08-31 11:38] VITALS: BP 90/57
--- NOTE | 2016-08-31 13:13 | Discharge Summary ---
Date of Encounter: 08/31/16 Time of Encounter: 11:00 - Discharge Diagnosis (1) Abdominal wall hematoma Priority: Primary Status: Resolved Qualifiers: Encounter type: initial encounter Qualified Code(s): S30.1XXA - Contusion of abdominal wall, initial encounter (2) Hypokalemia Priority: Primary Status: Resolved (3) Anemia of chronic disease Priority: Secondary Status: Chronic (4) Ascites due to alcoholic cirrhosis Priority: Secondary Status: Chronic (5) COPD (chronic obstructive pulmonary disease) Priority: Secondary Status: Chronic Qualifiers: COPD type: chronic bronchitis Chronic bronchitis type: unspecified Qualified Code(s): J42 - Unspecified chronic bronchitis (6) Cirrhosis of liver Priority: Secondary Status: Chronic Qualifiers: Hepatic cirrhosis type: alcoholic cirrhosis Ascites presence: with ascites Qualified Code(s): K70.31 - Alcoholic cirrhosis of liver with ascites (7) Pancytopenia Priority: Secondary Status: Chronic - Discharge Medications Home Medications: Folic Acid 1 mg PO DAILY 06/08/15 [History] Multivitamin/Iron/Folic Acid [Centrum Complete Multivit Tab] 1 tab PO DAILY [History] Propranolol HCl 60 mg PO DAILY 06/08/15 [History] Spironolactone [Aldactone] 100 mg PO BID 06/08/15 [History] Bumetanide [Bumex] 2 mg PO BID 07/15/16 [History] Cyclobenzaprine HCl 5 mg PO TID 07/15/16 [History] Mirtazapine [Remeron] 15 mg PO HS 07/15/16 [History] Omeprazole [PriLOSEC] 40 mg PO DAILY 07/15/16 [History] Ondansetron HCl [Zofran] 4 mg PO BID PRN 07/15/16 [History] Ciprofloxacin HCl [Cipro] 500 mg PO DAILY 08/28/16 [History] Lactulose 10 gm PO QID 08/28/16 [History] Pantoprazole Sodium [Protonix] 40 mg PO DAILY 08/28/16 [History] Potassium Chloride 10 meq PO DAILY 08/28/16 [History] Allergies/Adverse Reactions: Allergies Penicillins Allergy (Mild, Verified 08/28/16 11:06) Rash Procedures/tests Complete & Pending: Procedures Performed prior 72 hours Category Date Time Status IR paracentesis ultrasound [IR] Routine IR 08/30/16 Completed EKG [ECG 12 lead ECG] [ECG] Routine Y 08/28/16 14:39 Completed Date of admission: 08/28/16 12:06 Primary care physician: PCP [place] Consults: 08/28/16 14:05 Consult to Interventional Radiology [CONS] Routine Consulting Provider: Radiology Interventional Cols Reason for Consult: pericentesis Time Notified: 14:05 Call Completed: Yes 08/28/16 15:03 Consult to Engine Cleaner [CONS] Routine Reason for SW Consult: discuss living will/POA. [facility] 08/28/16 15:51 Consult to Occupational Therapy [CONS] Routine Comment: Evaluate, develop and implement POC Consult to Physical Therapy [CONS] Routine Comment: Evaluate, develop and implement POC 08/29/16 16:40 Consult to Interventional Radiology [CONS] Routine Consulting Provider: Radiology Interventional Cols Reason for Consult: Paracentensis Call Completed: Yes Discharging clinician: Yadiel Collado Anticipated date of discharge: 08/31/16 - Patient Status Disposition: Home, Self-Care Condition: Fair Functional capacity at discharge: independent ambulation Overall status at discharge: patient is back to baseline - Discharge Instructions Follow Up With: [facility] [Outside] - 09/03/16 9:30 am - Diet and Activity Activity: resume usual activities as tolerated Diet: low salt diet Interval History: Mr. Claros is a 41 year old male with a past medical hx of chronic anemia ( baseline HB per patient is ~9) alcohol liver cirrhosis, decompensated, GERD, GI bleed ,hepatitis ,hyperlipidemia, HTN He probably also has hx of SBP and is on ciprofloxacin po for prophylaxis Patient was hospitalized 08/28 and placed on observation for management of coagulopathy from liver disease with an INR of 2.2, and abdominal wall hematoma [facility] He received po Vitmain K 10mg X2 FFP X3 INR has been stable ~1.8 to 1.9 Hb dropped to 6.9 08/30/16 from 7.7 08/29/16 Patient received one unit of RBCs with adequate response He is s/p paracentensis 08/30 with 8.1L of fluid removed He received 8g/L of albumin for extra 3L of fluid removed ~25g of albumin after paracentensis He is seen at bedside this morning, in no form of distress, awake, alert He has no new complains His vital signs have been stable, including his BP (using an appropriate cuff) His home medications including SBP prophylaxis, Propanolol diuretics and lactulose have been continued in-patient Patient is stable to be discharged home, follow up with occupational hygienist at [place], he received therapeutic paracentensis once in 2 weeks , continue same Hospital course: Mr. Claros is a 41 year old male - Time Spent with Patient Total time spent providing and/or coordinating discharge services: Less than 30 minutes - Constitutional Vitals: Temp Pulse Resp BP Pulse Ox 98.3 F 84 15 90/57 94 L 08/31/16 11:37 08/31/16 11:37 08/31/16 11:37 08/31/16 11:37 08/31/16 11:37 General appearance: Present: cachectic, A&O X 3, pleasant, no acute distress - Head Head exam: Present: atraumatic, normocephalic - Eye Eye exam: Present: PERRL, scleral icterus, conjuntiva pink - ENT ENT exam: Present: mucous membranes moist - Neck Neck exam general surgery: Present: normal inspection, supple - Respiratory Respiratory exam: Present: CTAB - Cardiovascular Cardiovascular exam: Present: RRR, +S1, +S2. Absent: tachycardia - GI/Abdominal GI/Abdominal exam: Present: distended, normal bowel sounds, soft, no peritoneal signs. Absent: tenderness - Extremities Exam Extremities exam: Present: warm, radial pulses palpable and symetrical. Absent : calf tenderness, cyanotic, pedal edema - Neurological Exam Neurological exam: Present: CN II-XII intact, oriented X3, no focal deficits. Absent: pronater drift, facial droop, speech deficit - Skin Skin exam: Present: dry, excoriation - VTE Reasons for not Prescribing Prophylaxis: Medical contraindication Documentation of Mechanical Device: Intermittent pneumatic compression device
== END 2016-08-31 14:25 | disposition home or self-care (01) | DRG 433 ==
LOC: EMEROO 10:38 → 3ANU 12:06 → SUATTDRO 12:06 → 3ANU 12:25
PROVIDERS: ADMIT Family Medicine; ATTEND Internal Medicine